=== PATIENT | male | born 1955 | race Caucasian/White ===

== ENCOUNTER → 2019-03-25 | Outpatient (CLI) | payer BC ==
--- NOTE | 2019-03-25 12:13 | RAD ---
EXAM DESCRIPTION: Elbow,Right 3 Views CLINICAL HISTORY: 63 years Male, Pain in elbow COMPARISON: None. Findings: Joint alignment is maintained. No significant joint effusion. Well-corticated ossific fragment along the medial margin of the olecranon likely reflects a remote injury. No acute fracture is identified. Small scattered osteophytes. Dorsal olecranon enthesophyte. No focal soft tissue swelling. IMPRESSION: Chronic degenerative changes. No acute osseous abnormality identified. Electronically signed by: Dominick Buchanan MD 03/25/2019 12:11 PM CDT
== END ==
LOC: RAD 09:21
PROVIDERS: ATTEND Orthopaedic Surgery
DX: M19.021 Primary osteoarthritis, right elbow (principal)